=== PATIENT | male | born 1985 | race Caucasian/White ===

== ENCOUNTER → 2017-03-17 | Outpatient (CLI) | payer OTHER ==
[~2017-03-17] VITALS: Ht 180.3 cm; Wt 92.4 kg
[~2017-03-17] MED LIST: FLUT0.15; HYDR-3419 PO
[2017-03-17 15:31] VITALS: BP 151/82; PULSE 66; Ht 180.3 cm; Wt 92.4 kg
== END | disposition home or self-care (01) ==
LOC: C.NEUR 15:14
PROVIDERS: ATTEND Internal Medicine Pulmonary Disease
DX: R06.83 Snoring (principal); R53.83 Other fatigue; G47.19 Other hypersomnia; J30.9 Allergic rhinitis, unspecified

== ENCOUNTER → 2017-03-24 | Outpatient (CLI) | payer OTHER ==
[2017-03-24 13:12] LABS: BASO % 0.5 %; BASO ABS # 0.02 K/uL (0-0.2); COMPLETE YES; EOS % 2.6 %; HEMATOCRIT 40.6 % (42-52); LYMPH % 40.8 %; MEAN CELL VOLUME 85.3 fL (80-100); MEAN CORPUSCULAR HEMOGLOBIN 29.8 pg (25-34); MEAN PLATELET VOLUME 10.4 fL (7.4-10.4); MONO % 9.6 %; NEUT % 46.5 %; PLATELET COUNT 135 K/uL (130-400); RED BLOOD COUNT 4.76 M/uL (4.7-6.1); WHITE BLOOD COUNT 4.17 K/uL (4.8-10.8)
[2017-03-24 13:48] LABS: ALB/GLOB RATIO 1.8 (0.9-2); ALKALINE PHOSPHATASE 88 U/L (45-117); ALT/SGPT 53 U/L (12-78); AST/SGOT 23 U/L (15-37); BLOOD UREA NITROGEN 15 mg/dl (7-18); BUN/CREATININE RATIO 11.3 (10-20); CALCIUM 8.7 mg/dl (8.5-10.1); CARBON DIOXIDE 28 mmol/L (21-32); CHLORIDE 109 mmol/L (98-107); FERRITIN 231.9 ng/ml (8.0-388.0); GLUCOSE 87 mg/dl (70-99); HDL CHOLESTEROL 29 mg/dl; POTASSIUM 4.5 mmol/L (3.5-5.1); SODIUM 144 mmol/L (136-145)
[2017-03-24 13:51] LABS: CHOLESTEROL 134 mg/dl (0-200); CHOLESTEROL/HDL RATIO 4.6; LDL CHOLESTEROL CALCULATED 84 mg/dl; MAGNESIUM 2.3 mg/dl (1.8-2.4); TRIGLYCERIDES 107 mg/dl (0-150); VERY LOW DENSITY LIPOPROT CALC 21 mg/dl
== END | disposition home or self-care (01) ==
LOC: C.LABPBG 10:51
PROVIDERS: ATTEND Nurse Practitioner Family
DX: J45.909 Unspecified asthma, uncomplicated (principal); K52.9 Noninfective gastroenteritis and colitis, unspecified; Z13.220 Encounter for screening for lipoid disorders; K21.9 Gastro-esophageal reflux disease without esophagitis; Z13.1 Encounter for screening for diabetes mellitus

== ENCOUNTER → 2017-03-31 | Outpatient (CLI) | payer OTHER ==
[2017-04-04 00:38] LABS: IGA SERUM 57 mg/dL (81-463); TIS TRANS IGA 1 U/mL (<4)
== END | disposition home or self-care (01) ==
LOC: C.LAB1850 12:12
PROVIDERS: ATTEND Registered Nurse
DX: K21.9 Gastro-esophageal reflux disease without esophagitis (principal); K52.9 Noninfective gastroenteritis and colitis, unspecified; E55.9 Vitamin D deficiency, unspecified

== ENCOUNTER → 2017-04-15 | Day surgery (SDC) | payer OTHER ==
[2017-04-02 10:10] VITALS: Ht 180.3 cm; Wt 90.9 kg
[~2017-04-15] VITALS: Ht 180.3 cm; Wt 90.9 kg
[~2017-04-15] MED LIST changes: -HYDR-3419 PO; +KETAMINE HCL INJ 50 MG/ML 10 ML VIAL ONE; +LIDOCAINE HCL 2% 2 ML VIAL (20MG/ML) ONE; +MIDAZOLAM HCL 1 MG/ML 2ML VIAL ONE; +PROPOFOL IV EMULSION 10 MG/ML 20 ML VIAL IV ONE; +SODIUM CHLORIDE 0.9% 500ML 500 ML IV ONE
--- NOTE | 2017-04-15 08:41 | Endo History and Physical ---
History & Physical Date of Service: Apr 15, 2017. Chief Complaint: DIARRHEA, RECTAL BLEEDING Referring Physician: INOCENCIO BARRIGA History of Present Illness 31 yo CM who presents for colonoscopy secondary to diarrhea and rectal bleeding. Past Surgical History Hx Cardiac Surgery: No Hx Internal Defibrillator: No Hx Pacemaker: No Hx Abdominal Surgery: Yes (LAP [place]) Hx of Implantable Prosthesis: No Hx Post-Op Nausea and Vomiting: No Hx Cancer Surgery: No Hx Thoracic Surgery: No Hx Orthopedic: No Hx Urinary Tract Surgery: No Family History None, IBD Social History Smoking Status: Never Smoker Hx Substance Use: No Hx Alcohol Use: Yes ([employer]) Allergies Coded Allergies: Cephalexin (Verified Allergy, Mild, CHILD, 04/02/17) Metoclopramide (Verified Allergy, Mild, RASH, 04/02/17) Penicillins (Verified Allergy, Unknown, UNKNOWN, 04/15/17) Current Medications Reported Home Medications Medications Dose Route/Sig Max Daily Dose Days Date Category Flonase Allergy Relief (Fluticasone Propionate (Nasal)) 50 Mcg/Act Spr 1 [place] NA DAILY PRN 04/02/17 Reported Vital Signs Weight (Kilograms): 90.91 Height (Feet): 5 Height (Inches): 11 Date Time Temp Pulse Resp B/P (MAP) Pulse Ox O2 Delivery O2 Flow Rate FiO2 04/15/17 08:32 37.1 62 20 145/88 (107) 100 Room Air Physical Exam General Appearance: WD/WN, no apparent distress Respiratory/Chest: Auscultation: breath sounds normal Cardiovascular: Heart Auscultation: RRR Abdomen: Bowel Sounds: normal Inspection & Palpation: soft, non-distended, no tenderness, guarding & rebound Assessment and Plan Assessment: 31 yo CM who presents for colonoscopy secondary to diarrhea and rectal bleeding. Plan: Proceed with colonoscopy.
--- NOTE | 2017-04-15 09:07 | Discharge Instructions ---
Endoscopy Patient Instructions Date / Procedure(s) Performed Apr 15, 2017. Colonoscopy Allergy Information Coded Allergies: Cephalexin (Verified Allergy, Mild, CHILD, 04/02/17) Metoclopramide (Verified Allergy, Mild, RASH, 04/02/17) Penicillins (Verified Allergy, Unknown, UNKNOWN, 04/15/17) Discharge Date / Findings Apr 15, 2017. Random colon biopsies Internal hemorrhoids Medication Instructions Reported Home Medications Medications Dose Route/Sig Max Daily Dose Days Date Category Flonase Allergy Relief (Fluticasone Propionate (Nasal)) 50 Mcg/Act Spr 1 [place] NA DAILY PRN 04/02/17 Reported Provider Instructions Activity Restrictions - No exercising or heavy lifting for 24 hours. - Do not drink alcohol the day of the procedure. - Do not drive a car or operate machinery until the day after the procedure. - Do not make any important decisions or sign important papers in 24 hours after the procedure. Following Day: - Return to full activity which may include returning to work/school. Diet Start your diet with liquids and light foods (jello, soup, juice, toast). Then eat your usual diet if not nauseated. Treatment For Common After Affects For mild abdominal pain, bloating, or excessive gas: - Rest - Eat lightly - Lie on right side Follow-Up Information Follow-up with INOCENCIO BARRIGA as scheduled Anesthesia Information What You Should Know You have had a procedure that required some medicine to reduce anxiety and discomfort. This treatment is called moderate sedation. After receiving the treatment, you may be sleepy, but you will be able to breathe on your own. The effects of the treatment may last for several hours. Follow these instructions along with Activity/Diet recommendations noted above: * Do NOT do anything where dizziness or clumsiness would be dangerous. * Rest quietly at home today, then you can be up and about tomorrow. * Have a responsible person stay with you the rest of today. * You may have had an I.V. today. If so, you may take the dressing off later today. Recommendations Call your doctor if: * Trouble breathing * Continuous vomiting for more than 24 hours * Temperature above 101 degrees * Severe abdominal pain or bloating * Pain not relieved by pain medicine ordered * There is increased drainage or redness from any incision * A large amount of rectal bleeding greater than 2-3 tablespoons. (If you had a polyp/s removed or have hemorrhoids, a small amount of blood - from the rectum is to be expected.) * You have any unanswered questions or concerns. IN THE EVENT OF A SERIOUS EMERGENCY, GO TO THE NEAREST EMERGENCY ROOM Your discharge instructions were prepared by provider Cedrick Castillo. Patient Instructions Signature Page Steven Haynes Patient (or Guardian) Signature/Date: I have read and understand the instructions given to me by my caregivers. Caregiver/RN/Doctor Signature/Date: The above-named patient and/or guardian has received patient instructions on this date. + Original Patient Signature Page (only) stays with chart. Please make copy for patient.
--- NOTE | 2017-04-15 09:13 | GI REPORT ---
Procedure Date: 04/15/2017 8:37 AM Procedure: Colonoscopy Indications: Chronic diarrhea, Rectal bleeding Medicines: Monitored Anesthesia Care Complications: No immediate complications. Estimated Blood Loss: Estimated blood loss: none. Procedure: Pre-Anesthesia Assessment: - Prior to the procedure, a History and Physical was performed, and patient medications and allergies were reviewed. The patient's tolerance of previous anesthesia was also reviewed. The risks and benefits of the procedure and the sedation options and risks were discussed with the patient. All questions were answered, and informed consent was obtained. Prior Anticoagulants: The patient has taken no previous anticoagulant or antiplatelet agents. ASA Grade Assessment: II - A patient with mild systemic disease. After reviewing the risks and benefits, the patient was deemed in satisfactory condition to undergo the procedure. After I obtained informed consent, the scope was passed under direct vision. Throughout the procedure, the patient's blood pressure, pulse, and oxygen saturations were monitored continuously. The scope was introduced through the anus and advanced to the terminal ileum. The colonoscopy was performed without difficulty. The patient tolerated the procedure well. The quality of the bowel preparation was good. The terminal ileum, ileocecal valve, appendiceal orifice, and rectum were photographed. Findings: The colon (entire examined portion) appeared normal. Several random biopsies were obtained in the entire colon with cold forceps for histology. Non-bleeding internal hemorrhoids were found during retroflexion. The hemorrhoids were small. Impression: - The entire examined colon is normal. - Non-bleeding internal hemorrhoids. - Several random biopsies were obtained in the entire colon. Recommendation: - Resume previous diet. - Continue present medications. - Repeat colonoscopy for surveillance based on pathology results. - Return to primary care physician as previously scheduled. Cedrick Castillo DO 04/15/2017 9:13:16 AM This report has been signed electronically. Note Initiated On: 04/15/2017 8:37 AM I attest to the content of the Intraoperative Record and orders documented therein, exceptions below
--- NOTE | 2017-04-15 09:34 | Anesthesiology Progress Note ---
Anesthesia Post Op Note Date & Time Apr 15, 2017 at 09:34 Vital Signs Pain Intensity: 0 Vital Signs Past 12 Hours Date Time Temp Pulse Resp B/P (MAP) Pulse Ox O2 Delivery O2 Flow Rate FiO2 04/15/17 09:31 61 18 115/55 (75) 97 Nasal Cannula 04/15/17 09:13 68 20 111/48 (69) 97 Nasal Cannula 04/15/17 08:32 37.1 62 20 145/88 (107) 100 Room Air Notes Mental Status: alert / awake / arousable, participated in evaluation Pt Amnestic to Procedure: Yes Nausea / Vomiting: adequately controlled Pain: adequately controlled Airway Patency, RR, SpO2: stable & adequate BP & HR: stable & adequate Hydration State: stable & adequate Anesthetic Complications: no major complications apparent
[2017-04-15 09:50] VITALS: BP 116/60; PULSE 64; O2SAT 97
== END | disposition home or self-care (01) ==
LOC: C.GI 08:16
PROVIDERS: ATTEND Internal Medicine
DX: K64.8 Other hemorrhoids (principal); R19.7 Diarrhea, unspecified; K62.5 Hemorrhage of anus and rectum; Z83.79 Family history of other diseases of the digestive system

== ENCOUNTER → 2017-04-25 | Outpatient (CLI) | payer OTHER ==
[~2017-04-25] MED LIST changes: -KETAMINE HCL INJ 50 MG/ML 10 ML VIAL ONE; -LIDOCAINE HCL 2% 2 ML VIAL (20MG/ML) ONE; -MIDAZOLAM HCL 1 MG/ML 2ML VIAL ONE; -PROPOFOL IV EMULSION 10 MG/ML 20 ML VIAL IV ONE; -SODIUM CHLORIDE 0.9% 500ML 500 ML IV ONE
--- NOTE | 2017-04-26 06:06 | PAP/PSG TECHNICIAN REPORT ---
[facility] Wood Grinder Operator Polysomnogram Report Study name: None Report date: 04/26/2017 Study date: 04/25/2017 Referring Physician: DR. BARRETO Name: DEMARCO POTTER Interpreting Physician: Abhijit Barreto M.D. Date of : 1985 Wood Grinder Operator: Rodger Joseph RPSALLAN. Sex: Male Age: 31 StudyType: PSG Weight: 185 lbs 16.5 inches Height: 31 years, Height 5' 11" Neck Circum: BMI: 25.8 Medications: OMEPRAZOLE, ZYRTEC 10 MG Patient History PATIENT HAS HISTORY OF FATIGUE, EXCESSIVE DAYTIME SLEEPINESS AND LOW ENERGY. ALSO HAS HISTORY OF LOUD SNORING AND RESTLESS LEGS. HE IS HERE TODAY FOR AN EVALUATION FOR CARLEEN. ESS = 14 RM 3 Parameters Monitored NPSG: E1-M2, E2-M1, Fp1-M2, Fp2-M1, F3-M2, F4-M2, F4-M1, C3-M2, C4-M2, C4-M1, O1-M2, O2-M2, O2-M1, T3-M2, T4-M1, P3-M2, P4-M1, CHIN1, CHIN2, HR, EKG, Legs, PFLOW, SNOR, FLOW, CFLOW, Tidal Volume, THOR, ABDO, SpO2, PLTH, CPRESS, ETCO2 Wave, ETCO2, pH Sleep Architecture Sleep Stages Time at Lights Off 10:10:52 PM STAGES Time (min.) TST (%) Time at Lights On 5:47:52 AM Wake 79.0 -- Total Recording Time (TRT) 457.50 min. N1 12.5 3 Total Sleep Period (TSP) 419.0 min. N2 166.0 44 Total Sleep Time (TST) 378.0min. N3 108.5 29 Awake Time 79.5 min. REM 91.0 24 Wake after Sleep Onset 43.5 min. Sleep Efficiency (SE) 83 % Sleep Onset Latency (SOFY) 35.5 min. Number of Stage 1 Shifts None Awakenings 19 Stage Changes 73 Number of REM periods 4 REM 91.0 24 REM Latency 87.0 min. NREM 287.0 76 Body Position Analysis Supine Right Left Side Prone Vertical Total Sleep Time (min.) 134.8 207.6 71.8 279.46 0.0 0.0 Total Sleep Time (%) 26% 55% 19% 74 0% N/A% Total Sleep Time REM (min.) 29.5 61.5 0.0 None 0.0 0.0 Total Sleep Time NREM (min.) 69.0 146.1 71.8 None 0.0 0.0 Intermittent Wake (min.) 36.2 22.9 19.9 None 0.0 0.0 Total Sleep Period (%) 28% None None None None None Arousals Myoclonus (PLM) * Events Count Index Events Count Index Spontaneous 21 3 Events Awake (PLMW) 101 76.7 Respiratory 12 2.1 Events Asleep w/ Arousal (PLMA) 10 1.6 PLM 10 2 Events Asleep w/o Arousal (PLMS) 233 37.0 Snoring 3 0 Total Asleep 243 38.6 Total 46 7 Total 344 45 Respiratory Analysis * CA OA MA CH H RERA Total Count 1 1 0 0 44 5 46 Index 0.2 0.2 0.0 0 7.0 1 8.1 Mean Duration 17.3 15.8 0.0 0.00 21.3 17.4 20.7 Longest Duration 17.3 15.8 0.0 0.00 0.0 19.9 45.3 Respiratory Event Summary Total Supine ~Supine Right Left Prone REM NREM Apneas Count 2 1 1 1 0 N/A 0 2 Index 0.3 1 0 0.3 0.0 N/A 0 0 Hypopneas (4% Desat) Count 44 32 12 11 1 N/A 4 40 Index 7.0 19.5 3 3.2 0.8 N/A 2.6 8.4 Apneas & All Hypopneas Count 46 33 13 12 1 N/A 4 42 Index 7.3 20 3 3 1 N/A 2.6 8.8 Respiratory Events (Manager Ed+All Hyp+RERA) Count 46 37 14 13 1 N/A 4 42 Index 8.1 23 3 3.8 0.8 N/A 3.3 9.6 Respiratory Related Arousal Count 12 37 3 3 0 N/A 1 12 Index 2.1 6 1 1 0 N/A 1 3 Snoring Analysis Supine Right Left Prone REM NREM Total Snore duration 25.2 min Snores count 402 600 30 N/A 93 939 1,032 Snore mean duration 1.5 Sec Snores index 245 173 25 N/A 61.3 196.3 163.8 TST with snoring (%) 6.7% Desaturation Event Summary: Minimum %SpO2 Event Count Mean/Min/Max Duration(sec.) Desaturation Index % Time In Bed > 90 49 33.3 / 16.3 / 67.8 6.6 98.6 86 - 90 0 N/A 0.0 1.4 81 - 85 0 N/A 0.0 0.0 76 - 80 0 N/A 0.0 0.0 71 - 75 0 N/A 0.0 0.0 66 - 70 0 N/A 0.0 0.0 61 - 65 0 N/A 0.0 0.0 56 - 60 0 N/A 0.0 0.0 51 - 55 0 N/A 0.0 0.0 < 50 0 N/A 0.0 0.0 Total REM NREM Awake <50% 0.0 min. 0.0 min. 0.0 min. 0.0 min. 51 - 60% 0.0 min. 0.0 min. 0.0 min. 0.0 min. 61 - 70% 0.0 min. 0.0 min. 0.0 min. 0.0 min. 71 - 80% 0.0 min. 0.0 min. 0.0 min. 0.0 min. 81 - 90% 6.4 min. 0.5 min. 4.6 min. 1.2 min. 91 - 100% 443.9 min. 90.5 min. 282.3 min. 71.2 min. Average 94 94 94 95 Minimum SpO2 82 90 88 82 Desaturation Event Index 6.4 2.6 9.2 3.8 # Desat. Events below 89% 4 N/A 4 0 Time(%) with Saturation below 89% 0.1 0.0 0.1 0.1 Time(min.) with Saturation below 89% 0.7 0.0 0.4 0.3 Time (mins) REM (mins) NREM (mins) % of TST SpO2 Below 90% 24 2 N22 0.3 SpO2 Below 88% 2 0 0 0 Heart Rate Analysis Min (bpm) Max (bpm) Average (bpm) Awake 46 250 60 NREM 43 88 53 REM 45 74 55 Overall 43 88 54 Supplemental O2 Values Minimum O2 level: None Value Start Time End Time Wood Grinder Operator Comments Mr. Potter slept in the right, left and supine positions. No cardiac arrhythmia noted. Leg movements noted. No bruxism noted. Snoring was noted and scored as a 3 on a scale of 1 through 5. (0=no snoring, 5=snoring loud enough to be heard through a closed door or down the jesus way) Mr. Potter awoke to use the restroom 1 time during the night. Mr. Potter stated I did not sleep as well as I do when I am in my own bed. The final report will be interpreted and signed by a sleep physician. The completed physician report will then be placed in the patient medical record. Therapy (cm H2O) 0 TIB (min.) 457.0 TST (min.) 378.0 Sleep Onset (min.) 35.5 REM Onset From Sleep (min.) 87.0 Sleep Efficiency % 83 Wakefulness (%) 17 Wakefulness (min.) 79.5 NREM 1 (%) 3 NREM 1 (min.) 12.5 NREM 2 (%) 44 NREM 2 (min.) 166.0 NREM 3 (%) 29 NREM 3 (min.) 108.5 REM (%) 24 REM (min.) 91.0 # Arousals 46 Arousal Index 7 # Snore 1,032 Snore Index 163.8 AHI 7.3 AHI Supine 20 AHI Non-Supine 3 NREM AHI 8.8 REM AHI 2.6 RDI 8.1 # Obstructive Apnea 1 # Central Apnea 1 # Mixed Apnea 0 # Hypopneas 44 RERAs 5 Total Respiratory Events 54 Time Below SpO2 89% (min.) 0.4 Mean NREM SpO2 (%) 94 Mean REM SpO2 (%) 94 Mean Sleep SpO2 (%) 94 Min NREM SpO2 (%) 88 Min REM SpO2 (%) 90 Position Supine (min.) 134.8 Position Non-supine (min.) 279.5 LM Index Sleep 38.6 LM Index NREM 40.8 LM Index REM 31.6 Mean Heart Rate (bpm) 54 Min Heart Rate (bpm) 43
--- NOTE | 2017-04-27 16:29 | Sleep Study ---
Sleep Study Report Date of Service: April 25, 2017 Sleep Study Report Clinical data: The patient is a 31-year-old male with a history of loud snoring , daytime fatigue, a family history of sleep apnea, and unrefreshing sleep. His [place] sleepiness score is significantly elevated at 14/24. Sleep architecture: Total sleep period was 419 minutes. Total sleep time was 378 minutes divided between 287 minutes of non-REM sleep and 91 minutes of REM sleep. Sleep onset latency was slightly delayed at 35.5 minutes. REM latency was 87 minutes. Sleep efficiency was 83 percent. Wake after sleep onset was 43.5 minutes. Sleep consisted of stage N1 3 percent, stage N2 44 percent, stage N3 29 percent, and REM 24 percent. Arousal data: 46 arousals were recorded for an index of 7 per hour. PLM data: Moderately elevated limb movements and sleep were noted. There were 243 limb movements during sleep noted for an index of 38.6 per hour with an arousal index of 1.6 per hour. Respiratory data: Mild sleep apnea was documented. The AHI was 7.3. There was 1 central and 1 obstructive apneic episode. The longest apnea episode was 17.3 seconds. There were 44 hypopneas with a mean length of 21.3 seconds. Oximetry data: No significant hypoxemia was seen. Oxygen laverne was 88 percent during non-REM sleep. Mean saturation was 94 percent. EKG: Heart rates ranged from 43 to 88 beats per minute. No arrhythmias were noted. Vice Chancellor's comments: The patient slept in the right, left, and supine positions. Snoring was moderate, rated 3 on a scale of 1-5. The patient awoke once to use the restroom. Impression: Mild sleep apnea/hypopnea with an AHI of 7.3 without significant nocturnal hypoxemia . The majority of the patient's respiratory episodes occurred while supine. Recommendation: The patient may benefit from weight loss, use of an oral appliance, positional therapy, or repeat sleep study with CPAP. Clinical correlation is needed. Copies To 1: Uriah Garcia III, CRNP
== END | disposition home or self-care (01) ==
LOC: C.NEUR 21:00
PROVIDERS: ATTEND Internal Medicine Pulmonary Disease
DX: G47.19 Other hypersomnia (principal); R53.83 Other fatigue; R06.83 Snoring

== ENCOUNTER → 2017-05-05 | Outpatient (CLI) | payer OTHER | END | disposition home or self-care (01) | LOC: C.LAB 08:46 | PROVIDERS: ATTEND Nurse Practitioner Family | DX: E55.9 Vitamin D deficiency, unspecified (principal) ==

== ENCOUNTER → 2017-05-26 | Outpatient (CLI) | payer OTHER ==
[~2017-05-26] VITALS: Ht 180.3 cm; Wt 93.0 kg
[2017-05-26 14:16] VITALS: BP 121/80; PULSE 71; Ht 180.3 cm; Wt 93.0 kg
== END | disposition home or self-care (01) ==
LOC: C.NEUR 12:40
PROVIDERS: ATTEND Internal Medicine Pulmonary Disease
DX: G47.33 Obstructive sleep apnea (adult) (pediatric) (principal)

== ENCOUNTER → 2018-02-02 | Outpatient (CLI) | payer OTHER ==
[~2018-02-02] VITALS: Ht 180.3 cm; Wt 96.5 kg
[2018-02-02 12:17] VITALS: BP 137/60; PULSE 65; Ht 180.3 cm; Wt 96.5 kg
== END | disposition home or self-care (01) ==
LOC: C.NEUR 11:57
PROVIDERS: ATTEND Physician Assistant Medical
DX: G47.33 Obstructive sleep apnea (adult) (pediatric) (principal); J30.9 Allergic rhinitis, unspecified; G47.61 Periodic limb movement disorder